=== PATIENT | female | born 1985 | race Caucasian/White ===

== ENCOUNTER 2016-08-06 19:26 | Emergency (ER) | payer SELFPAY ==
[~2016-08-06] VITALS: Ht 180.3 cm; Wt 65.0 kg
[~2016-08-06 19:26] MED LIST: prenatal vitamin
[2016-08-06 19:28] VITALS: BP 141/79; PULSE 74; RESP 16; TEMP 98.4; O2SAT 100
--- NOTE | 2016-08-06 19:38 | PD ---
Physical Exam Date Seen by Provider: Aug 06, 2016 Time Seen by Provider: 19:34 Narrative 31 y/o female with 3 month here with several day history vaginal spotting with increased bleeding today. Denies Pain or Clots. No Fever Chills or other symptoms. V/S Stable Awaiting Bed Placement. Data Data Last Documented VS Vital Signs Date Time Temp Pulse Resp B/P Pulse Ox O2 Delivery O2 Flow Rate FiO2 08/06/16 19:28 98.4 74 16 141/79 100 MDM Medical Record Reviewed: Yes Supervised Visit with LUCILLE: Yes Condition: Stable Je Hoskins Aug 06, 2016 19:38
[2016-08-07] MEDS ORDERED: MACR100C2 PO (09:49)
== END 2016-08-06 20:16 | disposition left against medical advice (07) ==
LOC: NED 19:26
DX: O26.859 Spotting complicating pregnancy, unspecified trimester (principal); Z3A.00 Weeks of gestation of pregnancy not specified
CPT/HCPCS: 99283

== ENCOUNTER 2016-08-07 19:56 | Emergency (ER) | payer OTHER ==
[~2016-08-07 19:56] MED LIST changes: +MACR100C2 PO
[2016-08-07 19:58] VITALS: BP 141/84; PULSE 122; RESP 16; TEMP 98.9; O2SAT 97
== END 2016-08-07 20:05 | disposition left against medical advice (07) ==
LOC: NED 19:56
DX: O26.90 Pregnancy related conditions, unspecified, unspecified trimester (principal)
CPT/HCPCS: 99281

== ENCOUNTER → 2016-08-10 | Outpatient (CLI) | payer OTHER | LOC: HPND 09:37 | PROVIDERS: ATTEND Family Medicine | DX: O36.80X0 Pregnancy with inconclusive fetal viability, not applicable or unspecified (principal) | CPT/HCPCS: 76801 ==

== ENCOUNTER → 2016-08-15 | Outpatient (CLI) | payer OTHER | LOC: HPND 07:31 | PROVIDERS: ATTEND Family Medicine | DX: Z36 Encounter for antenatal screening of mother (principal) | CPT/HCPCS: 36416; 76813 ==

== ENCOUNTER → 2016-09-25 | Outpatient (CLI) | payer OTHER ==
[~2016-09-25] MED LIST changes: -MACR100C2 PO
== END ==
LOC: HPND 07:54
PROVIDERS: ATTEND Family Medicine
DX: Z36 Encounter for antenatal screening of mother (principal)
CPT/HCPCS: 76805

== ENCOUNTER → 2016-11-02 | Outpatient (CLI) | payer BC | LOC: HPND 10-23 08:19 | PROVIDERS: ATTEND Family Medicine | DX: Z36 Encounter for antenatal screening of mother (principal) | CPT/HCPCS: 76816 ==

== ENCOUNTER 2017-02-26 21:02 | Emergency (ER) | payer BC, MEDICAID ==
[~2017-02-26 21:02] MED LIST changes: +MACR100C2 PO; +PREN1PAK9 PO; -prenatal vitamin
--- NOTE | 2017-02-26 22:13 | PD ---
HPI Chief Complaint Contractions, leaking fluid Date Seen: Feb 26, 2017 Time Seen: 22:00 Travel History International Travel<30 Days: No Contact w/Intl Traveler<30Days: No History of Present Illness HPI 31 year old G1 at 40/4 weeks gestation presenting with contractions [id number] and intermittently leaking clear fluid. She is a patient of Dr. Reyes. Amnisure is negative. She also notes decreased movements since 5 PM. She has no headaches, visual blurriness, chest pain, shortness of breath, abdominal pain, nausea, vomiting, diarrhea, or dysuria. She's had no traumas. She is currently being treated with Macrobid for a UTI and is on her 4th day. She does not know the name of the antibiotic. She reports an uneventful course during this . She is up to date on labs and they are unremarkable other than GBS positive. History Past Medical History Narrative Medical None Obstetric History Obstetric History G1 41/4 weeks gestation GBS positive Patient of Dr. Reyes Unremarkable labs, up to date Currently treated for UTI Past Surgical History Narrative Surgical None Family History Narrative Family History Mom, dad, siblings are healthy Social History Narrative Social History No smoking, drinking, or drug use Lives with Allergies-Medications (Allergen,Severity, Reaction): Coded Allergies: No Known Allergies (Unverified Adverse Reaction, Unknown, 03/02/17) Home Meds Active Scripts Mv & Min W/Fe Prot Fernandez ( + Complete Multi 18-0.8 & 290 mg) 18 Mg Iron-800 Mcg-290 Mg-225 Mg Brett, 1 TAB PO DAILY, #30 BOTTLE 11 Refills Prov:Colleen Reyes MD R2 02/16/17 Discontinued Scripts Nitrofurantoin Monohydrate Macrocrystals (Macrobid) 100 Mg Cap, 100 MG PO BID for Infection, #14 CAP 0 Refills Prov:Rocio Velasco MD R2 02/23/17 Review of Systems Except as stated in HPI: all other systems reviewed are Neg Physical Exam Narrative GENERAL: Well-nourished, well-developed patient. SKIN: Warm and dry. HEAD: Normocephalic and atraumatic. EYES: No scleral icterus. No injection or drainage. ENT: No nasal drainage noted. Mucous membranes pink. Airway patent. NECK: Supple, trachea midline. No JVD. CARDIOVASCULAR: Regular rate and rhythm without murmurs, gallops, or rubs. RESPIRATORY: Breath sounds equal bilaterally. No accessory muscle use. ABDOMEN/GI: Abdomen soft, non-tender, bowel sounds present, no rebound, no guarding Gravid to 41 weeks size GENITOURINARY: External Genitalia: intact and normal in appearance Dilatation: 2-3 cm Effacement: 50% Station: -2 Presentation: vertex Membranes: intact, amnisure negative Uterine Contractions: FHT's: Category: 1 Baseline: 140's Reactive: yes Variability: moderate Decels: none EXTREMITIES: No cyanosis or edema. BACK: Nontender without obvious deformity. No CVA tenderness. NEUROLOGICAL: Awake and alert. Motor and sensory grossly within normal limits. Five out of 5 muscle strength in all muscle groups. Normal speech. Data Data Vital Signs Reviewed: Yes Group B Strep: Positive MDM Medical Record Reviewed: Yes Interpretation(s) 31 year old G1 at 40/4 weeks gestation presenting with contractions, leaking fluid. Amnisure negative. Contractions are intermittent. Cervical exam 2-3 cm, 50% effaced, -3 station. Reactive category 1 strip. - monitoring, nonstress test - Labor check - Oral hydration Discussed with Dr. Serrano Narrative Course / MDM - strip reassuring, category 1 tracing - Intermittent contractions - Cervical exam showing 2 cm, 50% effacement, -2 station - Labor precautions given, follow up with Dr. Reyes in clinic - Continue antibiotic for UTI as prescribed by Dr. Reyes - Will schedule for induction of labor Diagnosis Diagnosis: Primary Impression: Irregular contractions Disposition: DISCHARGE HOME Condition: Good Ruben Fan MD R3 Feb 26, 2017 22:13
== END 2017-02-27 00:58 | disposition home or self-care (01) ==
LOC: HOBED 21:02
DX: O47.1 False labor at or after 37 completed weeks of gestation (principal); O36.8130 Decreased fetal movements, third trimester, not applicable or unspecified; Z3A.40 40 weeks gestation of pregnancy; Z79.899 Other long term (current) drug therapy
CPT/HCPCS: 59025

== ENCOUNTER 2017-03-02 01:05 | Inpatient (IN) | payer MEDICAID ==
[~2017-03-02] VITALS: Ht 152.4 cm; Wt 93.0 kg
[2017-03-02] VITALS (39 sets, daily range): BP systolic 101–149; BP diastolic 56–83; PULSE 70–93; RESP 16–20; TEMP 98.4–100.4
--- NOTE | 2017-03-02 01:48 | PD ---
HPI Chief Complaint Contractions Date Seen: Mar 02, 2017 Time Seen: 01:45 Travel History International Travel<30 Days: No Contact w/Intl Traveler<30Days: No Known Affected Area: No History of Present Illness HPI Patient is a 31 year old G1 at 41/1 weeks gestation presents to the OB ED due to contractions. Patient follows with Dr. Reyes. Patient reports contractions beginning yesterday morning occurring throughout the day and being more regular through today. Also reports a small amount of vaginal bleeding, describes it as spotting which has occurred a couple times since yesterday as well. Denies any leakage of fluids. Endorses +FM. She is in pain currently due to contractions, but otherwise does not have any complaints. She states she has completed her course of antibiotics for a UTI. She had been on a course of Macrobid. She is desiring an epidural. Patient is GBS positive. Weeks Gestation: 41 Para: 0 : 1 History Past Medical History Narrative Medical None Medical History: Denies Significant Hx Obstetric History Obstetric History G1 at 41/1 weeks gestation GBS positive Patient of Dr. Reyes Unremarkable labs, up to date Past Surgical History Surgical History: No Previous Surgery Family History Narrative Family History Mom, dad, siblings are healthy Social History Narrative Social History No smoking, drinking, or drug use Lives with Allergies-Medications (Allergen,Severity, Reaction): Coded Allergies: No Known Allergies (Unverified Adverse Reaction, Unknown, 03/02/17) Home Meds Active Scripts Mv & Min W/Fe Prot Fernandez ( + Complete Multi 18-0.8 & 290 mg) 18 Mg Iron-800 Mcg-290 Mg-225 Mg Brett, 1 TAB PO DAILY, #30 BOTTLE 11 Refills Prov:Colleen Reyes MD R2 02/16/17 Discontinued Scripts Nitrofurantoin Monohydrate Macrocrystals (Macrobid) 100 Mg Cap, 100 MG PO BID for Infection, #14 CAP 0 Refills Prov:Rocio Velasco MD R2 02/23/17 Review of Systems Except as stated in HPI: all other systems reviewed are Neg Physical Exam Narrative GENERAL: Well-nourished, well-developed patient. SKIN: Warm and dry. HEAD: Normocephalic and atraumatic. EYES: No scleral icterus. No injection or drainage. ENT: No nasal drainage noted. Mucous membranes pink. Airway patent. NECK: Supple, trachea midline. No JVD. CARDIOVASCULAR: Regular rate and rhythm without murmurs, gallops, or rubs. RESPIRATORY: Breath sounds equal bilaterally. No accessory muscle use. ABDOMEN/GI: Abdomen soft, non-tender, bowel sounds present, no rebound, no guarding Gravid to 41 weeks size GENITOURINARY: External Genitalia: intact and normal in appearance Cervix: midposition Dilatation: 4cm Effacement: 80% Station: -2 Presentation: vertex Membranes: intact Uterine Contractions: q3m on tocometer FHT's: Category: I Baseline: 130s Reactive: yes Variability: mod Decels: none EXTREMITIES: No cyanosis or edema. BACK: Nontender without obvious deformity. NEUROLOGICAL: Awake and alert. Motor and sensory grossly within normal limits. Normal speech. Data Data Vital Signs Reviewed: Yes Group B Strep: Positive MDM Medical Record Reviewed: Yes Interpretation(s) 31 year old G1 at 41/1 weeks gestation being admitted to L&D in active labor. 1. IUP - Admit to L&D - Category I tracing - Contractions q3m on tocometer - Cervix: 4/80%/-2, membranes intact - GBS positive, start penicillin prophylaxis per protocol - Patient desiring epidural, orders placed - Anticipate AROM, if not spontaneously ruptured, after adequate GBS prophylaxis with penicillin > 4 hours - Continue expectant management Sigifredo Hawkins Dr., MD R2 Mar 02, 2017 01:47
[2017-03-02] MEDS ORDERED: PENICILLIN G POTASSIUM INJ 5,000,000 UNITS in SODIUM CHLORIDE 0.9% INJ 100 ML IV ONE (02:00)
[2017-03-02] MEDS ORDERED: LACTATED RINGER'S 1000 ML INJ 1,000 ML IV PRN (02:10)
[2017-03-02] MEDS ORDERED: MINERAL OIL 10 ML VIAL TOPICAL PRN (02:15)
[2017-03-02] MEDS ORDERED: SODIUM CHLORID 0.9% 500 ML INJ 500 ML IV PRN (02:15)
[2017-03-02] MEDS ORDERED: OXYTOCIN 30 UNITS-500ML PREMIX 500 ML IV ONE (02:15)
[2017-03-02] MEDS ORDERED: LIDOCAINE HCL 1% 50 ML VIAL INFIL PRN (02:15)
[2017-03-02] MEDS ORDERED: CITRIC ACID-SODIUM CITRATE LIQ 30 ML UDC PO SCH (02:15)
[2017-03-02] MEDS ORDERED: LIDOCAINE HCL 1% 50 ML VIAL I-DERMAL PRN (02:15)
--- NOTE | 2017-03-02 02:23 | HHI.HP ---
History & Physical H&P HPI Chief Complaint Contractions Date Seen: Mar 02, 2017 Time Seen: 01:45 Travel History International Travel<30 Days: No Contact w/Intl Traveler<30Days: No Known Affected Area: No History of Present Illness HPI Patient is a 31 year old G1 at 41/1 weeks gestation presents to the OB ED due to contractions. Patient follows with Dr. Reyes. Patient reports contractions beginning yesterday morning occurring throughout the day and being more regular through today. Also reports a small amount of vaginal bleeding, describes it as spotting which has occurred a couple times since yesterday as well. Denies any leakage of fluids. Endorses +FM. She is in pain currently due to contractions, but otherwise does not have any complaints. She states she has completed her course of antibiotics for a UTI. She had been on a course of Macrobid. She is desiring an epidural. Patient is GBS positive. Weeks Gestation: 41 Para: 0 : 1 History Past Medical History Narrative Medical None Medical History: Denies Significant Hx Obstetric History Obstetric History G1 at 41/1 weeks gestation GBS positive Patient of Dr. Reyes Unremarkable labs, up to date Past Surgical History Surgical History: No Previous Surgery Family History Narrative Family History Mom, dad, siblings are healthy Social History Narrative Social History No smoking, drinking, or drug use Lives with Allergies-Medications Allergies-Medications (Allergen,Severity, Reaction): Coded Allergies: No Known Allergies (Unverified Adverse Reaction, Unknown, 03/02/17) Home Meds Active Scripts Mv & Min W/Fe Prot Fernandez ( + Complete Multi 18-0.8 & 290 mg) 18 Mg Iron-800 Mcg-290 Mg-225 Mg Brett, 1 TAB PO DAILY, #30 BOTTLE 11 Refills Prov:Colleen Reyes MD R2 02/16/17 Discontinued Scripts Nitrofurantoin Monohydrate Macrocrystals (Macrobid) 100 Mg Cap, 100 MG PO BID for Infection, #14 CAP 0 Refills Prov:Rocio Velasco MD R2 02/23/17 ROS Review of Systems Except as stated in HPI: all other systems reviewed are Neg Physical Exam Physical Exam Narrative GENERAL: Well-nourished, well-developed patient. SKIN: Warm and dry. HEAD: Normocephalic and atraumatic. EYES: No scleral icterus. No injection or drainage. ENT: No nasal drainage noted. Mucous membranes pink. Airway patent. NECK: Supple, trachea midline. No JVD. CARDIOVASCULAR: Regular rate and rhythm without murmurs, gallops, or rubs. RESPIRATORY: Breath sounds equal bilaterally. No accessory muscle use. ABDOMEN/GI: Abdomen soft, non-tender, bowel sounds present, no rebound, no guarding Gravid to 41 weeks size GENITOURINARY: External Genitalia: intact and normal in appearance Cervix: midposition Dilatation: 4cm Effacement: 80% Station: -2 Presentation: vertex Membranes: intact Uterine Contractions: q3m on tocometer FHT's: Category: I Baseline: 130s Reactive: yes Variability: mod Decels: none EXTREMITIES: No cyanosis or edema. BACK: Nontender without obvious deformity. NEUROLOGICAL: Awake and alert. Motor and sensory grossly within normal limits. Normal speech. Data Data Data Vital Signs Reviewed: Yes Group B Strep: Positive MDM MDM Medical Record Reviewed: Yes Interpretation(s) 31 year old G1 at 41/1 weeks gestation being admitted to L&D in active labor. 1. IUP - Admit to L&D - Category I tracing - Contractions q3m on tocometer - Cervix: 4/80%/-2, membranes intact - GBS positive, start penicillin prophylaxis per protocol - Patient desiring epidural, orders placed - Anticipate AROM, if not spontaneously ruptured, after adequate GBS prophylaxis with penicillin > 4 hours - Continue expectant management Sigifredo Hawkins Dr., MD R2 Mar 02, 2017 02:23
[2017-03-02] MEDS ORDERED: SODIUM CHLOR 0.9% 1000 ML INJ 1,000 ML IV PRN (02:30)
[2017-03-02 02:31] LABS: AUTOMATED NEUTROPHIL # 11.2 TH/MM3 (1.8-7.7); BASOPHIL % 0.2 % (0.0-2.0); EOSINOPHIL # 0.4 TH/MM3 (0-0.4); EOSINOPHIL % 2.8 % (0.0-4.0); HEMATOCRIT 43.9 % (35.0-46.0); HEMO FLAGS DIFF FINAL; LYMPH % 13.9 % (9.0-44.0); LYMPHOCYTE # 2.1 TH/MM3 (1.0-4.8); MEAN CELL VOLUME 90.7 FL (80.0-100.0); MEAN CORPUSCULAR HEMOGLOBIN 31.8 PG (27.0-34.0); MONO % 9.4 % (0.0-8.0); NEUT % 73.7 % (16.0-70.0); PLATELET COUNT 169 TH/MM3 (150-450); RED BLOOD COUNT 4.84 MIL/MM3 (4.00-5.30); RED CELL DISTRIBUTION WIDTH 13.9 % (11.6-17.2); WHITE BLOOD COUNT 15.1 TH/MM3 (4.0-11.0)
[2017-03-02] MEDS: LACTATED RINGER'S 1000 ML INJ 1,000 ML IV SCH ×2 (02:35→07:25)
[2017-03-02] MEDS ORDERED: fentaNYL 2MCG-BUPIV 0.125% INJ 100 ML ONE (02:36)
[2017-03-02 02:41] LABS: BLOOD, URINE MOD (NEG); CALCIUM OXALATE CRYSTALS,URINE FEW /hpf; COMMENT (UR) CULT NOT INDICATED; CULTURE IF INDICATED CULT NOT INDICATED; GLUCOSE,URINE NEG (NEG); KETONE, URINE 80 mg/dL (NEG); MUCUS URINE FEW /lpf (OCC); NITRITE,URINE NEG (NEG); PH, URINE 5.5 (5.0-8.5); RENAL EPITHELIAL CELLS <1 /hpf; SQUAMOUS EPITHELIAL CELL URINE 1 /hpf (0-5); URINE COLOR YELLOW (YELLW/STRAW)
[2017-03-02] MEDS ORDERED: DO NOT ADMINISTER ANTICOAGULANTS PRN (03:00)
[2017-03-02] MEDS ORDERED: fentaNYL 2MCG-BUPIV 0.125% 100 ML EPIDURAL SCH (03:00)
[2017-03-02] MEDS ORDERED: NO SYSTEM NARCOTICS PRN (03:00)
[2017-03-02] MEDS ORDERED: ePHEDrine/NS 25 MG/5 ML SYR IV PUSH PRN (03:45)
[2017-03-02] MEDS: PENICILLIN G POTASSIUM INJ 2,500,000 UNITS in SODIUM CHLORIDE 0.9% INJ 100 ML IV SCH ×3 (06:38→15:00)
--- NOTE | 2017-03-02 07:25 | PD.LABORPN ---
Subjective Subjective Patient resting comfortably in bed. Epidural in place. AROM performed, fluids noted to be moderately meconium-stained. Scalp electrode and IUPC placed. Objective Vital Signs Vital Signs Date Time Temp Pulse Resp B/P (MAP) Pulse Ox O2 Delivery O2 Flow Rate FiO2 03/02/17 06:45 18 03/02/17 06:30 116/67 (83) 03/02/17 06:30 74 03/02/17 06:30 98.4 03/02/17 06:15 79 03/02/17 06:15 117/60 (79) 03/02/17 06:15 16 03/02/17 06:00 86 03/02/17 06:00 103/63 (76) 03/02/17 05:46 101/65 (77) 03/02/17 05:46 81 03/02/17 05:45 16 03/02/17 05:30 78 03/02/17 05:30 119/60 (79) 03/02/17 05:15 107/61 (76) 03/02/17 05:15 76 03/02/17 05:12 16 03/02/17 05:00 74 113/63 (80) 03/02/17 04:45 74 109/62 (78) 03/02/17 04:45 16 03/02/17 04:30 73 106/56 (73) 03/02/17 04:15 73 105/56 (72) 03/02/17 04:15 18 03/02/17 04:01 78 104/64 (77) 03/02/17 03:45 18 03/02/17 03:45 82 104/64 (77) 03/02/17 03:32 85 102/59 (73) 03/02/17 03:30 18 03/02/17 03:16 88 03/02/17 03:16 112/66 (81) 03/02/17 03:12 118/74 (89) 03/02/17 03:12 93 03/02/17 03:09 113/67 (82) 03/02/17 03:06 88 03/02/17 03:06 113/71 (85) 03/02/17 03:05 84 18 03/02/17 03:04 119/81 (94) 03/02/17 03:01 129/71 (90) 03/02/17 02:59 90 135/83 (100) 03/02/17 02:58 20 03/02/17 02:55 91 03/02/17 02:49 149/75 (99) 03/02/17 02:39 20 Objective Pelvic Exam: Cervix: midposition Dilatation: 5cm Effacement: 90% Station: -2 Presentation: vertex Membranes: ruptured s/p AROM Uterine Contractions: q3-4m on tocometer FHT's: Category: II Baseline: Reactive: yes Variability: mod Decels: one late decel noted, few early decels since Weeks Gestation: 41 Assessment/Plan Assessment and Plan 31 year old G1 at 41/1 weeks gestation admitted to L&D in active labor. 1. IUP - Category II tracing - Contractions q3-4m on tocometer, will monitor with IUPC - Cervix: 5/90%/-2, membranes ruptured s/p AROM - GBS positive, continue penicillin prophylaxis per protocol - Epidural in place - s/p AROM, fluids moderately meconium stained - Scalp electrode and IUPC placed - May need pitocin if not making adequate cervical change - Continue expectant management [place] Sigifredo Howell MD R2 Mar 02, 2017 07:25
[2017-03-02] MEDS ORDERED: OXYTOCIN 30 UNITS-500ML PREMIX 500 ML IV SCH ×2 (07:45→19:30)
--- NOTE | 2017-03-02 12:49 | PD.LABORPN ---
Subjective Subjective Pt is doing well. Making progress, epidural in place. Not feeling pressure Objective Vital Signs Vital Signs Date Time Temp Pulse Resp B/P (MAP) Pulse Ox O2 Delivery O2 Flow Rate FiO2 03/02/17 06:45 18 03/02/17 06:30 116/67 (83) 03/02/17 06:30 74 03/02/17 06:30 98.4 03/02/17 06:15 79 03/02/17 06:15 117/60 (79) 03/02/17 06:15 16 03/02/17 06:00 86 03/02/17 06:00 103/63 (76) 03/02/17 05:46 101/65 (77) 03/02/17 05:46 81 03/02/17 05:45 16 03/02/17 05:30 78 03/02/17 05:30 119/60 (79) 03/02/17 05:15 107/61 (76) 03/02/17 05:15 76 03/02/17 05:12 16 03/02/17 05:00 74 113/63 (80) 03/02/17 04:45 74 109/62 (78) 03/02/17 04:45 16 Objective Pelvic Exam: Cervix: midposition Dilatation: 8cm Effacement: 100% Station: 0 Presentation: Cephalic Membranes: AROM Uterine Contractions: q1-2 mins FHT's: Category: II Baseline: 140 Reactive: up to 145 Variability: minimal Decels: variable Weeks Gestation: 41 Assessment/Plan Problem List: (1) 41 weeks gestation of ICD Codes: Z3A.41 - 41 weeks gestation of Plan: 31 y/o at 41/1 weeks gestation, GBS positive, in active labor, making progress and doing well IUP -Category II tracing, IUPC and electrode in place -Epidural in place -Cervix: 8/100%/0 -AROM, meconium stained -Continue penicillin -Continue pitocin -Continue expectant management WDW Dr. Eduardo Reyes,Colleen Muhammad MD R2 Mar 02, 2017 12:49
--- NOTE | 2017-03-02 19:28 | PD.OB.DELI ---
Weeks gestation: 41 Gest age assessed date: Mar 02, 2017 Gest age assessed time: 02:00 Pt started active labor?: Yes Active labor start date: Mar 02, 2017 Medical induction of labor?: No Artificial rupture of membrane: Yes Artificial ROM date: Mar 02, 2017 Anesthesia: Epidural Episiotomy: None Vaginal Delivery: Normal, Spontaneous Presentation: Vertex Nuchal Cord: None Delayed cord clamping (45 sec): Yes Infant: Female Delivery date: Mar 02, 2017 Delivery time: 18:39 One Minute : 7 Five Minute : 7 Weight: 4020g Placenta: Spontaneous delivery, Intact, 3 vessel cord Laceration: Perineal laceration, 3 deg (3rd degree perineal laceration; left labial and sulcal lacerations) Repair: Chromic running Additional Information 31 y/o : spontaneous vaginal delivery at 41/1, AROM with meconium. 3rd degree laceration repaired by Dr. Clark and assisted by Dr. Reyes. Baby required CPAP at delivery and will be observed in the NICU for a short time. Mom is doing well. Cloleen Reyes MD R2 Mar 02, 2017 19:28
[2017-03-02] MEDS ORDERED: ZOLPIDEM TARTRATE 5 MG TAB PO PRN (19:30)
[2017-03-02] MEDS ORDERED: SODIUM CHLORIDE 0.9% FLUSH 10 ML FLUSH IV FLUSH PRN (19:30)
[2017-03-02] MEDS ORDERED: ALUMINUM/MAGNESIUM/SIMETH 30 ML CUP PO PRN (19:30)
[2017-03-02] MEDS ORDERED: ONDANSETRON ODT 4 MG TAB PO PRN (19:30)
[2017-03-02] MEDS ORDERED: BENZOCAINE 20% TOPICAL SPRAY 60 ML CAN TOPICAL PRN (19:30)
[2017-03-02] MEDS ORDERED: SODIUM CHLORIDE 0.9% FLUSH 10 ML FLUSH IV FLUSH SCH (21:00)
[2017-03-02] MEDS ORDERED: AMMONIA AROMATIC INHALANT 0.33 ML ONE (22:19)
[2017-03-02] MEDS: WITCH HAZEL 50%/GLYCERIN 12.5% 40 PAD JAR TOPICAL PRN (22:20)
[2017-03-02] MEDS: ACETAMINOPHEN 325 MG TAB PO PRN (22:22)
[2017-03-02] MEDS: IBUPROFEN 800 MG TAB PO PRN (22:22)
[2017-03-03] MEDS: IBUPROFEN 800 MG TAB PO PRN ×3 (07:12→22:24)
[2017-03-03] MEDS: ACETAMINOPHEN 325 MG TAB PO PRN ×3 (07:12→22:24)
[2017-03-03 08:26] VITALS: BP 120/66; PULSE 66; RESP 18; TEMP 97.5
--- NOTE | 2017-03-03 08:26 | HHI.OB ---
Subjective Post Day: 1 Remarks day #1. AFVSS overnight. Pain not well controlled. Lochia like a period. Has dysuria. No breast tenderness. Baby is in the NICU but she is pumping colostrum. Appetite good. No nausea or vomiting. Positive flatus. Negative bowel movement. Ambulating well. Denies calf pain, shortness of breath, or cough. Otherwise, she is doing well this morning and has no other complaints. Objective Vitals/I&O Vital Signs Date Time Temp Pulse Resp B/P (MAP) Pulse Ox O2 Delivery O2 Flow Rate FiO2 03/02/17 23:20 98.6 03/02/17 22:22 100.2 03/02/17 22:22 85 18 128/74 (92) 03/02/17 20:45 76 123/65 (84) 03/02/17 20:30 18 03/02/17 20:30 76 116/60 (78) 03/02/17 20:15 18 03/02/17 20:15 71 120/62 (81) 03/02/17 20:13 99.9 03/02/17 20:00 18 03/02/17 20:00 70 125/62 (83) 03/02/17 19:45 73 131/65 (87) 03/02/17 19:45 18 03/02/17 19:31 76 120/62 (81) 03/02/17 19:16 87 124/59 (80) 03/02/17 19:15 100.4 18 Objective Remarks GENERAL: Well-nourished, well-developed patient. CARDIOVASCULAR: Regular rate and rhythm without murmurs, gallops, or rubs. RESPIRATORY: Breath sounds equal bilaterally. No accessory muscle use. ABDOMEN/GI: Abdomen soft, non-tender. Fundus: Firm, non-tender below umbilicus. GENITOURINARY: Moderate bleeding. EXTREMITIES: No cyanosis or edema, non-tender, without signs of DVT. Medications and IVs Current Medications Medications (Trade) Dose Ordered Sig/Madelyn Route Start Time Stop Time Status Last Admin (Muri-Lube Oil) 10 ml UNSCH PRN TOPICAL 03/02/17 02:15 (NS Flush) 2 ml BID IV FLUSH 03/02/17 21:00 (NS Flush) 2 ml UNSCH PRN IV FLUSH 03/02/17 19:30 (Tylenol) 650 mg Q4H PRN PO 03/02/17 19:30 03/03/17 07:12 (Motrin) 800 mg Q8H PRN PO 03/02/17 19:30 03/03/17 07:12 (Americaine 20% Top Spr) 1 spray Q4H PRN TOPICAL 03/02/17 19:30 03/02/17 22:21 (Tucks Pads) 1 applic QID PRN TOPICAL 03/02/17 19:30 03/02/17 22:20 (Alesia-Colace) 2 tab Q12H PRN PO 03/02/17 19:30 (Ambien) 5 mg HS PRN PO 03/02/17 19:30 (M-M-R Ii Inj) 0.5 ml ONCE ONCE SQ 03/03/17 16:00 03/03/17 16:01 (Boostrix Inj) 0.5 ml ONCE ONCE IM 03/03/17 16:00 03/03/17 16:01 (Mag-Al Plus Susp Liq) 15 ml Q8H PRN PO 03/02/17 19:30 (Zofran Odt) 4 mg Q6H PRN PO 03/02/17 19:30 Assessment/Plan Problem List: (1) Normal vaginal delivery ICD Codes: O80 - Encounter for full-term uncomplicated delivery Assessment and Plan 31 y/o delivered vaginally on 03/02/17, day 1 -Continue routine care -Motrin and Percocet PRN for pain -Pericolase PRN for constipation -Encouraged OOB. Advised pelvic rest for 6 wks -Will need a follow-up appointment within 6 wks -Re: ctrl - did not discuss WDW Dr. Clark Discharge Planning -Baby in the NICU for meconium aspiration. Discussed with mom that baby may stay a few more days in the hospital but mom will most likely be discharged tomorrow Colleen Reyes MD R2 Mar 03, 2017 08:26
[2017-03-03] MEDS ORDERED: oxyCODONE/ACETAMINOPHEN 5 MG/325 MG TAB PO PRN ×2 (08:30)
[2017-03-03] MEDS ORDERED: LIDOCAINE HCL 5% OINT 37 GM TUBE TOPICAL PRN (08:30)
[2017-03-03] MEDS: WITCH HAZEL 50%/GLYCERIN 12.5% 40 PAD JAR TOPICAL PRN (11:20)
[2017-03-03] MEDS: DOCUSATE SODIUM 50 MG/SENNA 8.6 MG TAB PO PRN (15:29)
[2017-03-03] MEDS ORDERED: DIPHTH/TETANUS/ACEL PERTUSSIS (BOOSTER) 0.5 ML VIAL/PFS IM ONE (16:00)
[2017-03-03] MEDS ORDERED: MEASLES, MUMPS, RUBELLA VACCINE 0.5 ML VIAL SQ ONE (16:00)
[2017-03-03 22:10] VITALS: BP 112/61; PULSE 72; RESP 18; TEMP 98.3
[2017-03-04] MEDS: IBUPROFEN 800 MG TAB PO PRN (06:08)
[2017-03-04] MEDS: DOCUSATE SODIUM 50 MG/SENNA 8.6 MG TAB PO PRN (06:09)
[2017-03-04 07:51] VITALS: BP 106/60; PULSE 64; RESP 18; TEMP 97.9
--- NOTE | 2017-03-04 07:58 | HHI.OB ---
Subjective Post Day: 2 Remarks day # 2. AFVSS overnight. Decreased lochia. Denies dysuria. No breast tenderness. She is feeding the baby via breast milk, in NICU. Appetite good. No nausea or vomiting. No BM yet, wants to avoid straining. Ambulating well. Denies calf pain or shortness of breath. Otherwise, she is doing well this morning and has no other concerns. Objective Vitals/I&O Vital Signs Date Time Temp Pulse Resp B/P (MAP) Pulse Ox O2 Delivery O2 Flow Rate FiO2 03/03/17 22:10 98.3 72 18 112/61 (78) 03/03/17 08:26 120/66 (84) 03/03/17 08:26 97.5 66 18 Objective Remarks GENERAL: Well-nourished, well-developed patient. CARDIOVASCULAR: Regular rate and rhythm without murmurs, gallops, or rubs. RESPIRATORY: Breath sounds equal bilaterally. No accessory muscle use. ABDOMEN/GI: Abdomen soft, non-tender. Fundus: Firm, non-tender below umbilicus. GENITOURINARY: Moderate bleeding. EXTREMITIES: No cyanosis or edema, non-tender, without signs of DVT. Medications and IVs Current Medications Medications (Trade) Dose Ordered Sig/Madelyn Route Start Time Stop Time Status Last Admin (Muri-Lube Oil) 10 ml UNSCH PRN TOPICAL 03/02/17 02:15 (NS Flush) 2 ml BID IV FLUSH 03/02/17 21:00 (NS Flush) 2 ml UNSCH PRN IV FLUSH 03/02/17 19:30 (Tylenol) 650 mg Q4H PRN PO 03/02/17 19:30 03/03/17 22:24 (Motrin) 800 mg Q8H PRN PO 03/02/17 19:30 03/04/17 06:08 (Americaine 20% Top Spr) 1 spray Q4H PRN TOPICAL 03/02/17 19:30 03/02/17 22:21 (Tucks Pads) 1 applic QID PRN TOPICAL 03/02/17 19:30 03/03/17 11:20 (Alesia-Colace) 2 tab Q12H PRN PO 03/02/17 19:30 03/04/17 06:09 (Ambien) 5 mg HS PRN PO 03/02/17 19:30 (Mag-Al Plus Susp Liq) 15 ml Q8H PRN PO 03/02/17 19:30 (Zofran Odt) 4 mg Q6H PRN PO 03/02/17 19:30 (Percocet 5-325 Mg) 1 tab Q4H PRN PO 03/03/17 08:30 (Percocet 5-325 Mg) 2 tab Q4H PRN PO 03/03/17 08:30 (Xylocaine 5% Oint) 1 applic Q8H PRN TOPICAL 03/03/17 08:30 Assessment/Plan Problem List: (1) Normal vaginal delivery ICD Codes: O80 - Encounter for full-term uncomplicated delivery Status: Acute Assessment and Plan 31 y/o delivered vaginally on 03/02/17, day 2. Baby in NICU. No post- complications. -Continue routine care -Motrin and Percocet PRN for pain -Pericolace for constipation. Advised to take it regularly until she knows she is having soft stools given 3rd degree tear. -Encouraged OOB. Advised pelvic rest for 6 wks -Will need a follow-up appointment within 6 wks -Re: ctrl - wants to think about it and discuss with Dr. Reyes. Pelvic rest re-iterated DW Dr. Serrano Discharge Planning -Baby in the NICU for meconium aspiration. Discussed with mom that baby may stay a few more days in the hospital but mom will be discharged today to stay- close room Rocio Velasco MD R2 Mar 04, 2017 07:58
[2017-03-04] MEDS ORDERED: IBUP1TAB7 PO (08:00)
[2017-03-04] MEDS ORDERED: PERI PO (08:00)
[2017-03-04] MEDS ORDERED: ACET325T15 PO (08:00)
--- NOTE | 2017-03-04 08:01 | HHI.DCPOC ---
Discharge Care Plan Diagnosis: (1) Normal vaginal delivery (2) 41 weeks gestation of Report Symptoms to Your Doctor -Temperature above 100.5 degrees -Redness, of incision or excessive or foul smelling drainage -Unusual pain or calf pain -Increased vaginal bleeding -Painful or difficulty urinating -Feelings of extreme sadness or anxiety after 2 weeks Goals to Promote Your Health * To prevent worsening of your condition and complications * To maintain your health at the optimal level Directions to Meet Your Goals Take your medications as prescribed Follow your dietary instruction Follow activity as directed Ensure plenty of rest for recovery Drink fluids for hydration Keep your appointments as scheduled Take your immunizations and boosters as scheduled If your symptoms worsen call your PCP, if no PCP go to Urgent Care Center or Emergency Room Smoking is Dangerous to Your Health. Avoid second hand smoke Call the 24-hour crisis hotline for domestic abuse at Rocio Velasco MD R2 Mar 04, 2017 08:01
== END 2017-03-04 12:50 | disposition home or self-care (01) | DRG 775 ==
LOC: HOBED 01:05 → H2EB 02:18 → H1EA 21:36
PROVIDERS: ADMIT Obstetrics & Gynecology Maternal & Fetal Medicine; ATTEND Obstetrics & Gynecology Maternal & Fetal Medicine
PROC: 10E0XZZ Delivery of Products of Conception, External Approach (ICD-10-PCS; principal; 2017-03-02)
PROC: 0DQR0ZZ Repair Anal Sphincter, Open Approach (ICD-10-PCS; 2017-03-02)
PROC: 10E0XZZ Delivery of Products of Conception, External Approach (ICD-10-PCS; 2017-03-02)
PROC: 10907ZC Drainage of Amniotic Fluid, Therapeutic from Products of Conception, Via Natural or Artificial Opening (ICD-10-PCS; 2017-03-02)
PROC: 00HU33Z Insertion of Infusion Device into Spinal Canal, Percutaneous Approach (ICD-10-PCS; 2017-03-02)
PROC: 3E0R3BZ Introduction of Anesthetic Agent into Spinal Canal, Percutaneous Approach (ICD-10-PCS; 2017-03-02)
DX: O70.20 Third degree perineal laceration during delivery, unspecified (principal); O48.0 Post-term pregnancy; Z37.0 Single live birth; O99.824 Streptococcus B carrier state complicating childbirth; Z3A.41 41 weeks gestation of pregnancy; O77.0 Labor and delivery complicated by meconium in amniotic fluid
CPT/HCPCS: 59025; 81001; 85025; 86900; 86901; 88307; J2540; J2590; J7120